=== PATIENT | male | born 1970 | race Hispanic/Latino ===

== ENCOUNTER → 2016-10-27 | Outpatient (CLI) | payer OTHER ==
--- NOTE | 2016-10-27 13:29 | Diagnostic Imaging Report ---
PROCEDURE: US abdomen complete. TECHNIQUE: Multiple Real-time grayscale images were obtained over the abdomen in various projections. INDICATION: Right upper quadrant pain. FINDINGS: The pancreas is largely obscured. The liver is hyperechoic which might correlate with fatty infiltration or hepatitis. Hepatopetal flow in the portal vein is seen. The gallbladder demonstrates no stones or wall thickening. No pericholecystic fluid. The sonographic Palafox sign is reportedly negative. The CBD is 5 mm in caliber. The right kidney is 12 cm and the left kidney is 11.3 cm in length. No hydronephrosis or focal lesion. The spleen is 11.2 cm in length, not enlarged. The abdominal aorta is obscured except for its distal aspect which is normal in caliber. The visualized portion of the IVC appears unremarkable. IMPRESSION: Increased echogenicity of the liver which may relate to fatty infiltration or hepatitis. No focal lesion is seen, however. Dictated by: Dictated on workstation # [id number]
== END ==
LOC: RAD 07:53
PROVIDERS: ATTEND Nurse Practitioner Family
DX: K76.9 Liver disease, unspecified (principal); R10.11 Right upper quadrant pain
CPT/HCPCS: 76700

== ENCOUNTER → 2018-02-27 | Outpatient (CLI) | payer OTHER ==
[~2018-02-27] MED LIST: CATHETER FLUSH 10 ML SYR IV PRN
--- NOTE | 2018-02-27 12:01 | Diagnostic Imaging Report ---
INDICATION: Right upper quadrant pain. TECHNIQUE: Patient was administered 5.5 mCi of technetium-99m Choletec intravenously, and imaging over the abdomen was performed. At 45 minutes, patient ingested one can of Ensure, and gallbladder ejection fraction was calculated. FINDINGS: There is homogeneous uptake of activity by the liver with prompt excretion of activity into the common duct and gallbladder. Normal passage of activity into the small bowel is seen. Gallbladder ejection fraction is 98%. IMPRESSION: 1. No evidence of cystic duct or common bile duct obstruction. 2. Gallbladder ejection fraction of 98%. Dictated by: Dictated on workstation # [id number]
== END ==
LOC: CARD 09:08
PROVIDERS: ATTEND Internal Medicine
DX: R10.11 Right upper quadrant pain (principal)
CPT/HCPCS: 78227

== ENCOUNTER 2022-05-02 07:41 | Emergency (ER) | payer SELFPAY ==
[~2022-05-02] VITALS: Ht 172 cm; Wt 86.0 kg
--- NOTE | 2022-05-02 08:00 | ED GU-Male ---
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 HE STATES HE HAD THE SAME PROBLEM ABOUT A YEAR AGO, AND WAS PRESCRIBED THESE SAME MEDICATIONS AND HE GOT BETTER, BUT THIS TIME HE IS NOT GETTING BETTER. 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 NO HEMATURIA NO PAIN IN TESTICLES OR IN PENIS ITSELF. PT DENIES ANY MEDICAL PROBLEMS OR ANY SURGERIES HE DENIES SMOKING, ALCOHOL OR DRUG USE. PCP: [facility] Allergies and Home Medications Allergies Coded Allergies: No Allergy Information Available (Unverified , 02/27/18) Patient Home Medication List Doxycycline Hyclate (Doxycycline Hyclate) 100 Mg Tablet, 100 MG PO BID Prescribed by: ROSSANA ZEPEDA on 05/02/22 0934 Review of Systems Review of Systems Constitutional: no symptoms reported Respiratory: no symptoms reported Cardiovascular: no symptoms reported Gastrointestinal: no symptoms reported Genitourinary: see HPI, burning; denies discharge; dysuria; denies frequency, denies flank pain, denies hematuria, denies incontinence, denies urgency Musculoskeletal: see HPI, back pain Skin: no symptoms reported Psychiatric/Neurological: No Symptoms Reported Endocrine: No Symptoms Reported Hematologic/Lymphatic: No Symptoms Reported Past Fidrcxn-Pdidbm-Sgjvag Hx Patient Social History Tobacco Use?: No Smoking Status: Never a Smoker Smokeless Tobacco Frequency: Never a User Use of E-Cig and/or Vaping dev: No Use of E-Cig and/or Vaping [place]: Never a User Substance use?: No Alcohol Use?: No Past Medical History Surgeries: No Respiratory: No Cardiac: No Neurological: No Genitourinary: No Gastrointestinal: No Musculoskeletal: No Endocrine: No HEENT: No Cancer: No Psychosocial: No Integumentary: No Blood Disorders: No Physical Exam Vital Signs Vital Signs - First Documented 05/02/22 07:45 Temp 36.5 Pulse 59 Resp 18 Pulse Ox 97 O2 Delivery Room Air Capillary Refill : Height, Weight, BMI Height: '" Weight: lbs. oz. 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, no motor/sensory deficits, alert, normal mood/affect, oriented x 3 Skin: normal color (PT IS ), warm/dry; No rash Progress/Results/Core Measures Suspected Sepsis SIRS Temperature: Pulse: Respiratory Rate: Laboratory Tests 05/02/22 08:20: White Blood Count 5.0 Blood Pressure / Mean: Laboratory Tests 05/02/22 08:20: Creatinine 0.88, Platelet Count 242, Total Bilirubin 0.7 Results/Orders Lab Results Laboratory Tests Test 05/02/22 07:55 05/02/22 08:20 Range/Units Urine Color YELLOW Urine Clarity CLEAR Urine pH 6.0 5-9 Urine Specific [place] 1.020 1.016-1.022 Urine Protein NEGATIVE NEGATIVE Urine Glucose (UA) NEGATIVE NEGATIVE Urine Ketones NEGATIVE NEGATIVE Urine Nitrite NEGATIVE NEGATIVE Urine Bilirubin NEGATIVE NEGATIVE Urine Urobilinogen 0.2 < = 1.0 MG/DL Urine Leukocyte Esterase NEGATIVE NEGATIVE Urine RBC (Auto) NEGATIVE NEGATIVE Urine RBC NONE /HPF Urine WBC RARE /HPF Urine Squamous Epithelial Cells RARE /HPF Urine Crystals NONE /LPF Urine Bacteria NEGATIVE /HPF Urine Casts NONE /LPF Urine Mucus NEGATIVE /LPF Urine Culture Indicated NO White Blood Count 5.0 4.3-11.0 10^3/uL Red Blood Count 5.36 4.30-5.52 10^6/uL Hemoglobin 15.8 13.3-17.7 g/dL Hematocrit 46 40-54 % Mean Corpuscular Volume 86 80-99 fL Mean Corpuscular Hemoglobin 30 25-34 pg Mean Corpuscular Hemoglobin Concent 34 32-36 g/dL Red Cell Distribution Width 12.3 10.0-14.5 % Platelet Count 242 130-400 10^3/uL Mean Platelet Volume 9.7 9.0-12.2 fL Immature Granulocyte % (Auto) 0 % Neutrophils (%) (Auto) 59 42-75 % Lymphocytes (%) (Auto) 23 12-44 % Monocytes (%) (Auto) 12 0-12 % Eosinophils (%) (Auto) 4 0-10 % Basophils (%) (Auto) 1 0-10 % Neutrophils # (Auto) 2.9 1.8-7.8 10^3/uL Lymphocytes # (Auto) 1.2 1.0-4.0 10^3/uL Monocytes # (Auto) 0.6 0.0-1.0 10^3/uL Eosinophils # (Auto) 0.2 0.0-0.3 10^3/uL Basophils # (Auto) 0.1 0.0-0.1 10^3/uL Immature Granulocyte # (Auto) 0.0 0.0-0.1 10^3/uL Sodium Level 141 135-145 MMOL/L Potassium Level 4.1 3.6-5.0 MMOL/L Chloride Level 109 H 98-107 MMOL/L Carbon Dioxide Level 22 21-32 MMOL/L Anion Gap 10 5-14 MMOL/L Blood Urea Nitrogen 15 7-18 MG/DL Creatinine 0.88 0.60-1.30 MG/DL Estimat Glomerular Filtration Rate 105 BUN/Creatinine Ratio 17 Glucose Level 111 H 70-105 MG/DL Calcium Level 9.0 8.5-10.1 MG/DL Corrected Calcium 8.7 8.5-10.1 MG/DL Total Bilirubin 0.7 0.1-1.0 MG/DL Aspartate Amino Transf (AST/SGOT) 38 H 5-34 U/L Alanine Aminotransferase (ALT/SGPT) 90 H 0-55 U/L Alkaline Phosphatase 105 40-136 U/L Total Protein 7.2 6.4-8.2 GM/DL Albumin 4.4 3.2-4.5 GM/DL My Orders Orders - ROSSANA ZEPEDA DO Ua Culture If Indicated (05/02/22 07:49) Neis Lester Dna Urine Test (05/02/22 07:49) Chlamydia Trachomatis Urine (05/02/22 07:49) Ed Iv/Invasive Line Start (05/02/22 08:17) Ct Abdomen/Pelvis W (05/02/22 08:17) Cbc With Automated Diff (05/02/22 08:17) Comprehensive Metabolic Panel (05/02/22 08:17) Ed Iv/Invasive Line Start (05/02/22 08:17) Ns Iv 1000 Ml (Sodium Chloride 0.9%) (05/02/22 08:30) Iohexol Injection (Omnipaque 350 Mg/Ml 1 (05/02/22 09:00) Ns (Ivpb) (Sodium Chloride 0.9% Ivpb Bag (05/02/22 09:00) Ceftriaxone 1 Gm Pre-Mix (Rocephin 1 Gm (05/02/22 09:45) Azithromycin Tablet (Zithromax Tablet) (05/02/22 09:45) Medications Given in ED Current Medications Medications Dose Ordered Sig/Lauren Route Start Time Stop Time Status Last Admin Dose Admin Azithromycin 1,000 mg ONCE ONCE PO 05/02/22 09:45 05/02/22 09:46 05/02/22 09:39 1,000 MG Ceftriaxone Sodium/Dextrose 50 ml @ 100 mls/hr ONCE ONCE IV 05/02/22 09:45 05/02/22 10:14 05/02/22 09:39 100 MLS/HR Iohexol 100 ml ONCE ONCE IV 05/02/22 09:00 05/02/22 09:01 DC 05/02/22 09:07 80 ML Sodium Chloride 100 ml ONCE ONCE IV 05/02/22 09:00 05/02/22 09:01 DC 05/02/22 09:07 80 ML Vital Signs/I&O 05/02/22 07:45 Temp 36.5 Pulse 59 Resp 18 B/P (MAP) Pulse Ox 97 O2 Delivery Room Air Capillary Refill : Progress Note : Progress Note GIVEN: -IV FLUIDS -ROCEPHIN + ZITHROMAX FOR POSSIBLE STD OR NON-GONOCOCCAL URETHRITIS--STD TESTS PENDING. NO PRIOR VISITS HERE DISCUSSED TEST RESULTS, ANTICIPATED COURSE, NEED FOR FOLLOW UP AND RETURN PRECA UTIONS. Diagnostic Imaging Comments CT ABDOMEN/PELVIS--PER RADIOLOGIST REPORT AT 928 FINDINGS: LOWER THORAX: Clear. LIVER: Enlarged at 20.9 cm with mild steatosis. GALLBLADDER: Present and unremarkable. No bile duct dilatation. SPLEEN: Unremarkable. PANCREAS: Unremarkable. ADRENAL GLANDS: Unremarkable. KIDNEYS: Normal configuration. No calcification or obstruction. ABDOMINAL AORTA: Unremarkable, nonaneurysmal. A few shotty aortocaval lymph nodes. GASTROINTESTINAL TRACT: No obstruction or inflammation. Normal appendix. URINARY BLADDER: Unremarkable. REPRODUCTIVE: Unremarkable. OSSEOUS STRUCTURES: No acute abnormality. OTHER: None. IMPRESSION: 1. Negative for acute abnormality of the abdomen or pelvis. Negative for nephroureterolithiasis. No obstruction. 2. Hepatomegaly with steatosis. Reviewed: Reviewed by Me Departure Impression Primary Impression: Dysuria Disposition: HOME, SELF-CARE Condition: Stable Departure-Patient Inst. Decision time for Depature: 09:30 Referrals: [facility] (PCP/Family) Primary Care Physician Patient Instructions: Dysuria, Adult (DC) Add. Discharge Instructions: CONTINUE YOUR CURRENT MEDICATIONS PRESCRIBED All discharge instructions reviewed with patient and/or family. Voiced understanding. Scripts Phenazopyridine HCl (Pyridium) 200 Mg Tablet 1 TAB PO TID, #15 TAB Prov: ROSSANA ZEPEDA DO 05/02/22 Tamsulosin HCl (Flomax) 0.4 Mg Cap 0.4 MG PO DAILY, #10 CAP Prov: ROSSANA ZEPEDA DO 05/02/22 Doxycycline Hyclate (Doxycycline Hyclate) 100 Mg Tablet 100 MG PO BID, #20 TAB 0 Refills Prov: ROSSANA ZEPEDA DO 05/02/22 ROSSANA ZEPEDA DO May 02, 2022 08:00
[2022-05-02 08:06] LABS: BILIRUBIN,URINE NEGATIVE (NEGATIVE); CLARITY,URINE CLEAR; COLOR,URINE YELLOW; GLUCOSE, URINE (UA) NEGATIVE (NEGATIVE); KETONES,URINE NEGATIVE (NEGATIVE); LEUKOCYTE ESTERASE ,URINE NEGATIVE (NEGATIVE); NITRITE,URINE NEGATIVE (NEGATIVE); PROTEIN,URINE NEGATIVE (NEGATIVE)
[2022-05-02 08:13] LABS: BACTERIA,URINE NEGATIVE /HPF; SQUAMOUS EPITHELIAL CELL,UR RARE /HPF; WBC,URINE RARE /HPF
[2022-05-02] MEDS ORDERED: NS IV 1000 ML 1,000 ML IV SCH (08:30)
[2022-05-02 08:32] LABS: BASOPHILS # (AUTO) 0.1 10^3/uL (0.0-0.1); BASOPHILS % (AUTO) 1 % (0-10); EOSINOPHILS # (AUTO) 0.2 10^3/uL (0.0-0.3); EOSINOPHILS % (AUTO) 4 % (0-10); HEMATOCRIT 46 % (40-54); HEMOGLOBIN 15.8 g/dL (13.3-17.7); LYMPHOCYTES # (AUTO) 1.2 10^3/uL (1.0-4.0); LYMPHOCYTES % (AUTO) 23 % (12-44); MEAN CORPUSCULAR HEMOGLOBIN 30 pg (25-34); MEAN CORPUSCULAR HGB CONC 34 g/dL (32-36); MEAN CORPUSCULAR VOLUME 86 fL (80-99); MEAN PLATELET VOLUME 9.7 fL (9.0-12.2); MONOCYTES # (AUTO) 0.6 10^3/uL (0.0-1.0); MONOCYTES % (AUTO) 12 % (0-12); NEUTROPHILS # (AUTO) 2.9 10^3/uL (1.8-7.8); NEUTROPHILS % (AUTO) 59 % (42-75); PLATELET COUNT 242 10^3/uL (130-400)
[2022-05-02 08:39] LABS: ALBUMIN 4.4 GM/DL (3.2-4.5)
[2022-05-02 08:40] LABS: POTASSIUM 4.1 MMOL/L (3.6-5.0)
[2022-05-02 08:42] LABS: TOTAL PROTEIN 7.2 GM/DL (6.4-8.2)
[2022-05-02 08:44] LABS: BILIRUBIN,TOTAL 0.7 MG/DL (0.1-1.0)
[2022-05-02 08:45] LABS: CREATININE SERUM 0.88 MG/DL (0.60-1.30)
[2022-05-02] MEDS ORDERED: IOHEXOL 350 MG/ML 100 ML (OMNIPAQUE 350) VIAL IV ONE (09:00)
[2022-05-02] MEDS ORDERED: NS 100 ML (IVPB) BAG IV ONE (09:00)
--- NOTE | 2022-05-02 09:21 | Diagnostic Imaging Report ---
PROCEDURE: CT abdomen and pelvis with contrast. TECHNIQUE: Multiple contiguous axial images were obtained through the abdomen and pelvis after administration of intravenous contrast. Auto Exposure Controls were utilized during the CT exam to meet ALARA standards for radiation dose reduction. All CT scans use one or more of the following dose optimizing techniques: automated exposure control, MA and/or KvP adjustment based on patient size and exam type or iterative reconstruction. INDICATION: CORRELATION STUDY: 51-year-old male, urinary pain for approximately 10 days. Patent right lower back. FINDINGS: LOWER THORAX: Clear. LIVER: Enlarged at 20.9 cm with mild steatosis. GALLBLADDER: Present and unremarkable. No bile duct dilatation. SPLEEN: Unremarkable. PANCREAS: Unremarkable. ADRENAL GLANDS: Unremarkable. KIDNEYS: Normal configuration. No calcification or obstruction. ABDOMINAL AORTA: Unremarkable, nonaneurysmal. A few shotty aortocaval lymph nodes. GASTROINTESTINAL TRACT: No obstruction or inflammation. Normal appendix. URINARY BLADDER: Unremarkable. REPRODUCTIVE: Unremarkable. OSSEOUS STRUCTURES: No acute abnormality. OTHER: None. IMPRESSION: 1. Negative for acute abnormality of the abdomen or pelvis. Negative for nephroureterolithiasis. No obstruction. 2. Hepatomegaly with steatosis. Dictated by: Dictated on workstation # [id number]
[2022-05-02] MEDS ORDERED: DOXY100T2 PO (09:34)
[2022-05-02] MEDS ORDERED: PHEN-640 PO (09:44)
[2022-05-02] MEDS ORDERED: TMSL.4C PO (09:44)
[2022-05-02] MEDS ORDERED: cefTRIAXone 1 GM PRE-MIX 50 ML IV ONE (09:45)
[2022-05-02] MEDS ORDERED: AZITHROMYCIN 250 MG TAB (ZITHROMAX) PO ONE (09:45)
[2022-05-02 10:14] VITALS: BP 147/92
== END 2022-05-02 10:14 | disposition home or self-care (01) ==
LOC: EDUNIT# 07:41 → ER 07:42
DX: R30.0 Dysuria (principal)
CPT/HCPCS: 36415; 74177; 80053; 81000; 85025; 87491; 87591